=== PATIENT | female | born 1995 | race Caucasian/White ===

== ENCOUNTER 2018-01-26 23:49 | Emergency (ER) | payer OTHER ==
[~2018-01-26] VITALS: Ht 144.8 cm; Wt 43.0 kg
[2018-01-26 23:52] VITALS: TEMP 36.7; Ht 144.8 cm; Wt 43.0 kg
[2018-01-27] MEDS ORDERED: ALUMINUM/MAGNESIUM SUSP 30 ML UDC PO STA (00:01)
[2018-01-27] MEDS ORDERED: LIDOCAINE HCL 2% VISC SOLN 20 ML UDC PO STA (00:01)
[2018-01-27] MEDS ORDERED: PANTOprazole SOD 40 MG TAB PO STA (00:32)
[2018-01-27 00:33] VITALS: BP 112/71; PULSE 75; O2SAT 98
[2018-01-27] MEDS ORDERED: PANT40TA PO (00:42)
--- NOTE | 2018-01-27 06:13 | EMERGENCY ROOM VISIT NOTE ---
History First contact with patient: 23:57 Chief Complaint: OTHER COMPLAINT Stated Complaint: CHEST PAIN History of Present Illness The patient is a 22 year old female who presents to the Emergency Room with complaints of epigastric discomfort after eating spicy noodles and fried chicken and brown yesterday. Patient states she eats a lot of spicy foods. Patient feels an uncomfortable sensation there. She has not tried anything. Patient denies exertional chest pain, dyspnea, nausea, vomiting, diarrhea, abdominal pain, urinary symptoms. She is tolerating p.o. fluids and food. No alcohol, tobacco or drug use. Review of Systems An 10 system review of systems was completed with positives and pertinent negatives listed in the HPI. Past Medical/Surgical History none Social History Smoking Status: Never Smoker Smokeless Tobacco Use: No Alcohol Use: none Drug Use: none Marital Status: single Occupation Status: [employer] Current/Historical Medications Scheduled Pantoprazole (Protonix), 40 MG PO DAILY Physical Exam Vital Signs Date Time Temp Pulse Resp B/P (MAP) Pulse Ox O2 Delivery O2 Flow Rate FiO2 01/27/18 00:33 75 16 112/71 98 Room Air 01/26/18 23:52 36.7 91 20 134/82 97 Room Air Physical Exam VITALS: Vitals are noted on the nurse's note and reviewed by myself. Vital signs stable. GENERAL: Pleasant female, in no acute distress, nondiaphoretic, well-developed well-nourished. SKIN: The skin was without rashes, erythema, edema, or bruising. There is no tenting of the skin. Capillary reflex less than 2 seconds. HEAD: Normocephalic atraumatic. EARS: External auditory canals clear, tympanic membranes pearly pa without erythema or effusion bilaterally. EYES: Pupils equal round and reactive to light and accommodation. Conjunctivae without injection, sclerae without icterus. Extraocular movements intact. NOSE: Patent, turbinates without inflammation or discharge. MOUTH: Mucous membranes moist. Pharynx without erythema or exudate. Uvula midline. Airway patent. Tongue does not deviate. NECK: Supple without nuchal rigidity. No lymphadenopathy. No thyromegaly. Cervical spine is nontender. No JVD. HEART: Regular rate and rhythm without murmurs gallops or rubs. LUNGS: Clear to auscultation bilaterally without wheezes, rales or rhonchi. No retractions or accessory muscle use. ABDOMEN: Positive bowel sounds x 4. Normal tympanic percussion. Soft, nontender, without masses or organomegaly. Fatima sign negative. No guarding or rebound tenderness. No CVA tenderness MUSCULOSKELETAL: No muscle atrophy, erythema, or edema noted. NEURO: Patient was alert and oriented to person place and time. Normal sensation to light and sharp touch. No focal neurological deficits. Medical Decision & Procedures Medications Administered Medications (Trade) Dose Ordered Sig/Malik Route Start Time Stop Time Status Last Admin Dose Admin Lidocaine HCl (Viscous Lidocaine 2% Soln) 10 ml NOW STAT PO 01/27/18 00:01 01/27/18 00:02 DC 01/27/18 00:09 10 ML Al Hydroxide/Mg Hydroxide (Maalox Susp) 30 ml NOW STAT PO 01/27/18 00:01 01/27/18 00:02 DC 01/27/18 00:08 30 ML Pantoprazole Sodium (Protonix Tab) 40 mg NOW STAT PO 01/27/18 00:32 01/27/18 00:33 DC 01/27/18 00:47 40 MG ED Course Prior records/ancillary studies reviewed. Triage Nursing notes reviewed. Additional history obtained from friend The patient's history was concerning for epigastric discomfort. Differential diagnosis: Etiologies such as indigestion, esophagitis, reflux, cardiac ischemia, aortic dissection, pulmonary embolism, pneumonia, pneumothorax, musculoskeletal, infections, pericarditis, myocarditis, esophageal rupture, gastrointestinal, as well as others were entertained. Physical examination: As above. ER treatment provided: GI cocktail On reassessment the patient felt better. Diagnostic interpretation by me: Deferred Exam and history seem consistent with esophagitis. Symptoms started shortly after eating a spicy foods. She felt much better after the medication. She did not have an acute abdomen on exam. She is well-appearing. Patient was advised to avoid spicy foods and to take medications as directed. She is advised to follow-up health services in a few days or here in the ER sooner for chest pain, difficulty breathing, abdominal pain, vomiting, black or blood in her stool, worsening sinus symptoms or as needed. By the evaluation outlined above emergent etiologies such as cardiac ischemia, aortic dissection, pulmonary embolism, pneumonia, pneumothorax, infections, pericarditis, myocarditis, gastrointestinal, as well as others were deemed relatively unlikely. The pt informed about the findings as listed above. All questions were answered and pleased with the treatment. Return instructions were outlined and the patient was discharged in stable condition. Outpatient prescription management: Protonix Referral: The patient was referred back to [facility]/primary care physician for follow-up in 2 to 3 days for a recheck of the current condition. Medical Decision as above Medication Reconcilliation Current Medication List: was personally reviewed by me Blood Pressure Screening Patient's blood pressure: Normal blood pressure Impression Primary Impression: Esophagitis Departure Information Dispostion Home / Self-Care Condition GOOD Prescriptions Pantoprazole (Protonix) 40 Mg Tab 40 MG PO DAILY for 14 Days, #14 TAB Prov: Loly Cage .RENETTA 01/27/18 Forms WORK / SCHOOL INSTRUCTIONS, HOME CARE DOCUMENTATION FORM, IMPORTANT VISIT INFORMATION Patient Instructions Esophagitis, [facility] Additional Instructions Protonix 40 m tablet daily for next 2 weeks. Take this on an empty stomach. Try Maalox or Zantac for breakthrough symptoms for reflux. Avoid large meals. Avoid acidic/spicy foods. Soft foods until symptoms resolve. Rest and drink plenty of fluids as tolerated. Continue current medications. Avoid strenuous activities and anything that worsens your pain. Resume normal activities once your symptoms resolve. Return to the ER immediately for worsening or persistent chest pain, abdominal pain, black or blood in your stools, vomiting, fevers, chest pains, difficulty breathing, worsening of your condition, or as needed. Follow up with your primary physician in 2-3 days for a recheck of your current condition.
== END 2018-01-27 00:51 | disposition home or self-care (01) ==
LOC: C.EDB 23:51
DX: K20.9 Esophagitis, unspecified (principal)